=== PATIENT | female | born 1990 | race Caucasian/White ===

== ENCOUNTER → 2017-10-26 01:21 | Emergency (ER) | payer OTHER ==
[~2017-10-26 01:21] MED LIST: Ondansetron ODT TAB* 4 MG SL ONE
--- NOTE | 2017-10-26 02:17 | ED ---
Substance Abuse/Use - HPI Summary HPI Summary: Patient is a 27-year-old female with a history of Sreekanth-Danlos and Mckeon syndrome presenting to the ED with friend. Friend states she has had 2 very large alcoholic mixed drinks this evening with THC oil as well. She is endorsing some nausea on arrival. Denies any other drug use. Denies any falls , hitting her head or LOC. She denies any chest pain or shortness of breath. - History Of Current Complaint Chief Complaint: EDSubstanceAbuse Stated Complaint: POSSIBLE OVERDOSE Time Seen by Provider: 10/26/17 01:47 Hx Obtained From: Patient ?: No Ingestion History: Type/Name Of Drug - etoh and cbd oil Overdose Characteristics: Oral Severity Initially: Mild Severity Currently: Mild Aggravating Factor(s): Nothing Alleviating Factor(s): Nothing Associated Signs And Symptoms: Negative - Allergies/Home Medications Allergies/Adverse Reactions: Allergies Allergy/AdvReac Type Severity Reaction Status Date / Time codeine Allergy Itching Verified 10/26/17 01:24 MS Penicillins [Penicillins] Allergy YARED Verified 10/31/16 13:51 PADMINI SYNDROME Home Medications: Home Medications NK [No Home Medications Reported] 10/26/17 [History Confirmed 10/26/17] PMH/Surg Hx/FS Hx/Imm Hx Previously Healthy: Yes Endocrine/Hematology History: Denies: Hx Diabetes Cardiovascular History: Denies: Hx Hypertension, Hx Pacemaker/ICD History: Denies: Hx Renal Disease Sensory History: Denies: Hx Hearing Aid Psychiatric History: Denies: Hx Panic Disorder - Surgical History Surgery Procedure, Year, and Place: CHEVRON OSTEOTOMY 05/2016 RIGHT FOOT. LEFT SHOULDER REPAIR 2008. MAXILLA REPAIR FOR FRACTURE 2008. WISDOM TEETH. TONSILS /ADENOIDS 1999. LEFT BREAST BIOPSY 2006 Infectious Disease History: No Infectious Disease History: Denies: Traveled Outside the US in Last 30 Days - Social History Occupation: Employed Full-time Lives: With Family Alcohol Use: Occasionally Hx Substance Use: No Substance Use Type: Reports: None Hx Tobacco Use: No Smoking Status (MU): Never Smoked Tobacco Review of Systems Constitutional: Negative Negative: Fever, Chills, Fatigue, Skin Diaphoresis Negative: Palpitations, Chest Pain Negative: Shortness Of Breath, Cough Positive: Vomiting, Nausea. Negative: Abdominal Pain, Diarrhea Neurological: Negative Psychological: Normal All Other Systems Reviewed And Are Negative: Yes Physical Exam Triage Information Reviewed: Yes Vital Signs On Initial Exam: Initial Vitals Temp Pulse Resp BP Pulse Ox 98.1 F 85 15 111/75 99 10/26/17 01:22 10/26/17 01:22 10/26/17 01:22 10/26/17 01:22 10/26/17 01:22 Vital Signs Reviewed: Yes Appearance: Positive: Well-Appearing, Well-Nourished Skin: Positive: Warm, Skin Color Reflects Adequate Perfusion Head/Face: Positive: Normal Head/Face Inspection Eyes: Positive: EOMI, SUNNY, Conjunctiva Clear Neck: Positive: Supple, No Lymphadenopathy Respiratory/Lung Sounds: Positive: Clear to Auscultation, Breath Sounds Present Cardiovascular: Positive: RRR, Pulses are Symmetrical in both Upper and Lower Extremities Abdomen Description: Positive: Nontender, Soft Musculoskeletal: Positive: Normal, Strength/ROM Intact Neurological: Positive: Slurred Speech Psychiatric: Positive: Normal, Affect/Mood Appropriate AVPU Assessment: Alert Diagnostics - Vital Signs Vital Signs Temp Pulse Resp BP Pulse Ox 10/26/17 01:22 98.1 F 85 15 111/75 99 - Laboratory Lab Statement: Any lab studies that have been ordered have been reviewed, and results considered in the medical decision making process. Course/Dx - Course Course Of Treatment: Friend is at bedside. Patient is given Zofran 4 mg ODT. 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 Zofran with improvement. Asking for discharge. She is discharged home with alcohol intoxication to sober [facility] care. - Diagnoses Differential Diagnosis/HQI/PQRI: Positive: Alcohol Abuse Provider Diagnoses: Alcohol intoxication Discharge - Sign-Out/Discharge Documenting (check all that apply): Patient Departure - Discharge Plan Condition: Stable Disposition: HOME Patient Education Materials: Alcohol Intoxication (ED) Referrals: No Primary Care Phys,NOPCP [Primary Care Provider] - - Billing Disposition and Condition Condition: STABLE Disposition: Home
[2017-10-26 03:04] VITALS: BP 109/71
== END | disposition home or self-care (01) ==
LOC: ED 01:21
DX: F10.129 Alcohol abuse with intoxication, unspecified (principal); Q79.6 Ehlers-Danlos syndromes; I49.8 Other specified cardiac arrhythmias; Z88.5 Allergy status to narcotic agent; Z88.0 Allergy status to penicillin
CPT/HCPCS: 99282; A9270-GY

== ENCOUNTER 2018-02-07 20:36 | Inpatient (IN) | payer OTHER ==
[2018-02-07 21:56] LABS: ABS Basophils 0 10^3/ul (0-0.2); ABS Eosinophils 0.1 10^3/ul (0-0.6); ABS Lymphocytes 1.5 10^3/ul (1.0-4.8); ABS Monocytes 0.4 10^3/ul (0-0.8); ABS Neutrophils 6.7 10^3/ul (1.5-7.7); ABS Nucleated RBC 0 10^3/ul; Eosinophil % 0.6 %; Hematocrit 40 % (35-47); Hemoglobin 13.6 g/dl (12.0-16.0); Lymphocyte % 16.8 %; Mean Corpuscular HGB Conc 34 g/dl (31-36); Mean Corpuscular Hemoglobin 32 pg (27-31); Mean Corpuscular Volume 93 fL (80-97); Mean Platelet Volume 8.3 fL (7.4-10.4); Nucleated Red Blood Cells % 0; Platelet Count 233 10^3/ul (150-450); Red Blood Count 4.29 10^6/ul (4.00-5.40); Red Cell Distribution Width 13 % (10.5-15); White Blood Count 8.7 10^3/ul (3.5-10.8)
[2018-02-07 22:12] LABS: EGFR Non-African American 74.2 (>60)
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
[2018-02-07 23:45] LABS: Urine Appearance Clear; Urine Blood Negative (Negative); Urine Color Yellow; Urine Ketones Negative (Negative); Urine Protein Negative (Negative); Urine Specific Gravity 1.009 (1.010-1.030); Urine Urobilinogen Negative (Negative)
[2018-02-08] MEDS ORDERED: Acetaminophen TAB* 325 MG PO PRN (04:08)
[2018-02-08] MEDS ORDERED: Al Hydrox/Mg Hydrox/Simet LIQ* 30 ML UDC PO PRN (04:08)
[2018-02-08] MEDS: Vitamin THERAPEUTIC TAB PO SCH (10:08)
[2018-02-08] MEDS: Ibuprofen TAB* 600 MG PO PRN (10:08)
[2018-02-08] MEDS: Lisdexamfetamine(NF) 10 MG CAP PO SCH (10:08)
[2018-02-08] MEDS: Cetirizine* 10 MG TAB PO SCH (18:17)
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
[2018-02-09] MEDS: Vitamin THERAPEUTIC TAB PO SCH (09:26)
[2018-02-09] MEDS: Lisdexamfetamine(NF) 10 MG CAP PO SCH (09:26)
[2018-02-09] MEDS: Ibuprofen TAB* 600 MG PO PRN (09:27)
--- NOTE | 2018-02-09 11:48 | PN ---
[facility]: Group Therapy Note - Service Type Service Type: 13901 Group Psychotherapy - Cognitive Behavioral Group Therapy ( CBT):Patient was attentive and participatory in CBT programming this morning, and remained in good behavioral control. Patient expressed positive insights regarding relevant treatment interventions and goals.
[2018-02-09] MEDS ORDERED: hydrOXYzine HCL TAB* 50 MG PO PRN (13:29)
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
[2018-02-09] MEDS: Venlafaxine EXT RELEASE CAP* 75 MG PO SCH (14:48)
[2018-02-09] MEDS: Cetirizine* 10 MG TAB PO SCH (21:50)
[2018-02-10] MEDS: Vitamin THERAPEUTIC TAB PO SCH (09:07)
[2018-02-10] MEDS: Venlafaxine EXT RELEASE CAP* 75 MG PO SCH (09:07)
[2018-02-10] MEDS: Ibuprofen TAB* 600 MG PO PRN (09:08)
[2018-02-10] MEDS ORDERED: Ondansetron TAB* 4 MG PO PRN (12:10)
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
[2018-02-10] MEDS: Cetirizine* 10 MG TAB PO SCH (17:46)
[2018-02-11] MEDS: Venlafaxine EXT RELEASE CAP* 75 MG PO SCH (09:53)
[2018-02-11] MEDS: Vitamin THERAPEUTIC TAB PO SCH (09:53)
--- NOTE | 2018-02-11 11:36 | PN ---
MHU: Group Therapy Note - Service Type Service Type: [id number] Group Psychotherapy - Cognitive Behavioral Group Therapy ( CBT):Patient was attentive and participatory in CBT programming this morning, and remained in good behavioral control. Patient expressed positive insights regarding relevant treatment interventions and goals.
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
[2018-02-11] MEDS: Cetirizine* 10 MG TAB PO SCH (17:38)
[2018-02-12] MEDS: Venlafaxine EXT RELEASE CAP* 75 MG PO SCH (09:00)
[2018-02-12] MEDS: Vitamin THERAPEUTIC TAB PO SCH (09:00)
[2018-02-12] MEDS ORDERED: LISDEXAMFETAMINE 20 MG PO SCH (12:00)
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
[2018-02-12] MEDS: Cetirizine* 10 MG TAB PO SCH (23:17)
[2018-02-13] MEDS: Vitamin THERAPEUTIC TAB PO SCH (08:37)
[2018-02-13] MEDS: Venlafaxine EXT RELEASE CAP* 75 MG PO SCH (08:37)
[2018-02-13] MEDS ORDERED: Lisdexamfetamine(NF) 10 MG CAP PO SCH (09:00)
[2018-02-13 09:06] VITALS: BP 121/76
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
== END 2018-02-13 14:45 | disposition home or self-care (01) | DRG 885 ==
LOC: ED 20:36 → BSU 02-08 02:31
PROVIDERS: ADMIT Psychiatry & Neurology Psychiatry; ATTEND Psychiatry & Neurology Psychiatry
DX: F33.1 Major depressive disorder, recurrent, moderate (principal); R45.851 Suicidal ideations; Q79.6 Ehlers-Danlos syndromes; F41.1 Generalized anxiety disorder; F90.0 Attention-deficit hyperactivity disorder, predominantly inattentive type; F60.3 Borderline personality disorder; K21.9 Gastro-esophageal reflux disease without esophagitis; T40.4X2A Poisoning by other synthetic narcotics, intentional self-harm, initial encounter; T42.4X2A Poisoning by benzodiazepines, intentional self-harm, initial encounter; T43.212A Poisoning by selective serotonin and norepinephrine reuptake inhibitors, intentional self-harm, initial encounter; Y92.039 Unspecified place in apartment as the place of occurrence of the external cause; Z79.899 Other long term (current) drug therapy; Z88.5 Allergy status to narcotic agent; Z88.0 Allergy status to penicillin
CPT/HCPCS: 36415; 80053; 80307; 80320; 80329; 81003; 84443; 84702; 85025; 90853; 99222; 99231; 99232; 99238; 99285; A9270-GY; G0480

== ENCOUNTER 2018-06-03 16:18 | Emergency (ER) | payer OTHER ==
[2018-06-03] MEDS ORDERED: NS 0.9% 1000 ML** 1,000 ML IV ONE (17:09)
[2018-06-03] MEDS ORDERED: Ondansetron INJ* 2 MG/ML VIAL IV ONE (17:09)
[2018-06-03] MEDS ORDERED: Pantoprazole IV* 40 MG IV ONE (17:09)
--- NOTE | 2018-06-03 17:14 | ED ---
GI/ HPI - HPI Summary HPI Summary: Pt is a 27 y/o F presenting to the ED with a chief complaint of GI issues. She has hx of GERD that she takes omeprazole for. She woke up this morning at 0400 and vomited gastric juices, around 0900 she had coffee ground emesis, and at 1100/1200, she saw maroon streaks in her vomit. She reports nausea, vomiting, and hematemesis. She denies abd pain, fever, or black stools. - History of Current Complaint Chief Complaint: EDNauseaVomitDiarrh Time Seen by Provider: 06/03/18 17:01 Stated Complaint: BLOODY VOMIT PER PT Hx Obtained From: Patient Onset/Duration: Started Hours Ago, Still Present Timing: Constant Severity: Mild Current Severity: Mild Pain Intensity: 0 Location of Pain: Epigastric Pain Characteristics: Cramping - mild Associated Signs and Symptoms: Positive: Hematemesis, Nausea, Vomiting. Negative: Black Tarry Stool, Fever, Abdominal Pain Aggravating Factor(s): Nothing Alleviating Factor(s): Nothing - Additional Pertinent History Primary Care Physician: [id number] - Allergy/Home Medications Allergies/Adverse Reactions: Allergies Allergy/AdvReac Type Severity Reaction Status Date / Time codeine Allergy Itching Verified 10/26/17 01:24 Penicillins Allergy See Comment Verified 02/07/18 21:36 Home Medications: Home Medications Dextroamphetamine (NF) TAB [Dexedrine TAB*] 10 mg PO DAILY 06/03/18 [History Confirmed 06/03/18] Ethinyl Estradiol/Drospirenone [Hanh 28 Tablet (Nf)] 1 each PO DAILY 06/03/18 [ History Confirmed 06/03/18] rOPINIRole TAB* [Requip TAB*] 1 mg PO BEDTIME 06/03/18 [History Confirmed ] PMH/Surg Hx/FS Hx/Imm Hx Previously Healthy: Yes Endocrine/Hematology History: Denies: Hx Diabetes, Hx Thyroid Disease, Hx Anemia Cardiovascular History: Reports: Other Cardiovascular Problems/Disorders - POTS Denies: Hx Hypertension, Hx Pacemaker/ICD Respiratory History: Reports: Hx Seasonal Allergies GI History: Reports: Hx Gastroesophageal Reflux Disease History: Denies: Hx Benign Prostatic Hyperplasia, Hx Renal Disease Musculoskeletal History: Reports: Other Musculoskeletal History - Ehler's Danlo Denies: Hx Arthritis, Hx Back Problems, Hx Bursitis, Hx Congenital Bone Abnormalities, Hx Fibromyalgia, Hx Gout, Hx Orthopedic Injury, Hx Osteoporosis, Hx Scoliosis, Hx Tendonitis Sensory History: Reports: Hx Contacts or Glasses Denies: Hx Hearing Aid Opthamlomology History: Reports: Hx Contacts or Glasses Neurological History: Reports: Other Neuro Impairments/Disorders - Concussions ( 12 total) Psychiatric History: Reports: Hx Attention Deficit Hyperactivity Disorder, Hx Depression, Hx Post Traumatic Stress Disorder - Trauma related, Hx Inpatient Treatment - Hospital in [place], [place], Hx [facility], Hx Suicide Attempt - Overdose on medications Denies: Hx Anxiety, Hx Eating Disorder, Hx Panic Disorder, Hx Schizophrenia, Hx of Violent Episodes Against Others, Hx Substance Abuse - Surgical History Surgery Procedure, Year, and Place: [place] OSTEOTOMY 05/2016 RIGHT FOOT(BUNION REPAIR). LEFT SHOULDER TENDON REPAIR 2008. MAXILLA REPAIR FOR FRACTURE 2008. WISDOM TEETH. TONSILS/ADENOIDS 1999. LEFT BREAST BIOPSY 2006 Hx Anesthesia Reactions: No Infectious Disease History: No Infectious Disease History: Denies: Traveled Outside the in Last 30 Days - Family History Known Family History: Positive: Other - GERD, father - Social History Alcohol Use: Rare Alcohol Amount: 4 cups of vodka or wine Hx Substance Use: No Substance Use Type: Reports: None Hx Tobacco Use: No Smoking Status (MU): Never Smoked Tobacco Review of Systems Negative: Fever Gastrointestinal: Negative - black stools Positive: Vomiting, Nausea, Other - hematemesis. Negative: Abdominal Pain All Other Systems Reviewed And Are Negative: Yes Physical Exam - Summary Physical Exam Summary: VITAL SIGNS: Reviewed. GENERAL: Patient is a well-developed and nourished female who is lying comfortable in the stretcher. Patient is not in any acute respiratory distress. HEAD AND FACE: No signs of trauma. No ecchymosis, hematomas or skull depressions. No sinus tenderness. EYES: PERRLA, EOMI x 2, No injected conjunctiva, no nystagmus. EARS: Hearing grossly intact. Ear canals and tympanic membranes are within normal limits. MOUTH: Oropharynx within normal limits. NECK: Supple, trachea is midline, no adenopathy, no JVD, no carotid bruit, no c- spine tenderness, neck with full ROM. CHEST: Symmetric, no tenderness at palpation LUNGS: Clear to auscultation bilaterally. No wheezing or crackles. CVS: Regular rate and rhythm, S1 and S2 present, no murmurs or gallops appreciated. ABDOMEN: Mild epigastric tenderness. No signs of distention. No rebound no guarding, and no masses palpated. Bowel sounds are normal. EXTREMITIES: FROM in all major joints, no edema, no cyanosis or clubbing. NEURO: Alert and oriented x 3. No acute neurological deficits. Speech is normal and follows commands. SKIN: Dry and warm Triage Information Reviewed: Yes Vital Signs On Initial Exam: Initial Vitals Temp Pulse Resp BP Pulse Ox 98.7 F 74 16 146/89 97 06/03/18 16:20 06/03/18 16:20 06/03/18 16:20 06/03/18 16:20 06/03/18 16:20 Vital Signs Reviewed: Yes Diagnostics - Vital Signs Vital Signs Temp Pulse Resp BP Pulse Ox 06/03/18 17:01 70 98 06/03/18 16:20 98.7 F 74 16 146/89 97 - Laboratory Result Diagrams: 06/03/18 17:47 06/03/18 17:47 Lab Statement: Any lab studies that have been ordered have been reviewed, and results considered in the medical decision making process. GIGU Course/Dx - Course Assessment/Plan: Patient is a 27-year-old female who presents to the emergency room with a one episode of vomiting blood. Patient reports that she has severe GERD and in the last couple days the patient is be having worsening symptoms. Test results without any significant abnormality, hemoglobin and hematocrit is normal, potassium is 3.4. Which the patient was given potassium chloride. Urinalysis is negative for UTI. Chest x-ray impression no acute pathology. In the ED course the patient was given IV fluids for rehydration, Zofran for nausea and vomiting and Protonix for the GERD. After these medications were given the patients symptoms have significantly improved. The patient will be discharged home with follow-up with PCP. Patient is hemodynamically stable alert oriented 3. Patient will be discharged home with a prescription for Zofran and Protonix. - Diagnoses Provider Diagnoses: Nausea & vomiting, GERD (gastroesophageal reflux disease) Discharge - Sign-Out/Discharge Documenting (check all that apply): Patient Departure Patient Received Moderate/Deep Sedation with Procedure: No - Discharge Plan Condition: Stable Disposition: HOME Prescriptions: Ondansetron ODT TAB* [Zofran 4 MG Odt TAB*] 4 mg PO Q6H PRN #10 tab.odt PRN Reason: Nausea Pantoprazole TAB * [Protonix TAB*] 40 mg PO DAILY #14 tab Referrals: Bri Manjarrez NP [Primary Care Provider] - Terrell Gore MD [Medical Doctor] - Additional Instructions: Please follow up with gastroenterology within the next 3 days. Return to the ED with any new or worsening symptoms. - Billing Disposition and Condition Condition: STABLE Disposition: Home - Attestation Statements Document Initiated by Fernandoibbaldo: Yes Documenting Scribe: Emily Pham Provider For Whom Jamel is Documenting (Include Credential): Arron Adan MD. Scribe Attestation: Emily Rosas scribed for Arron Adan MD. on 06/04/18 at 1817. Scribe Documentation Reviewed: Yes Provider Attestation: The documentation as recorded by the [email or web address] accurately reflects the service I personally performed and the decisions made by Arron mahan MD. Status of Scribe Document: Viewed
[2018-06-03 18:01] LABS: ABS Basophils 0 10^3/ul (0-0.2); ABS Eosinophils 0.1 10^3/ul (0-0.6); ABS Lymphocytes 2.3 10^3/ul (1.0-4.8); ABS Monocytes 0.5 10^3/ul (0-0.8); ABS Neutrophils 4.8 10^3/ul (1.5-7.7); ABS Nucleated RBC 0 10^3/ul; Eosinophil % 0.8 %; Hematocrit 35 % (33-41); Hemoglobin 12.1 g/dL (12.0-16.0); Lymphocyte % 29.5 %; Mean Corpuscular HGB Conc 35 g/dL (31-36); Mean Corpuscular Hemoglobin 32 pg (27-31); Mean Corpuscular Volume 93 fL (80-97); Mean Platelet Volume 9.1 fL (7.4-10.4); Nucleated Red Blood Cells % 0; Platelet Count 213 10^3/uL (150-450); Red Blood Count 3.77 10^6 /uL (3.70-4.87); Red Cell Distribution Width 12 % (10.5-15); White Blood Count 7.7 10^3/uL (3.5-10.8)
[2018-06-03 18:14] LABS: ALT 11 U/L (7-52); AST 15 U/L (13-39); Albumin 3.9 g/dL (3.2-5.2); Albumin/Globulin Ratio 1.8 (1-3); Alkaline Phosphatase 35 U/L (34-104); Anion Gap 8 mmol/L (2-11); BUN/Creatinine Ratio 12.6 (8-20); Blood Urea Nitrogen 11 mg/dL (6-24); C Reactive Protein < 1.00 mg/L (<8.01); CO2 Carbon Dioxide 24 mmol/L (22-32); Calcium 8.8 mg/dL (8.6-10.3); Chloride 107 mmol/L (101-111); EGFR African American 94.5 (>60); EGFR Non-African American 78.1 (>60); Globulin 2.2 g/dL (2-4); Glucose 98 mg/dL (70-100); Potassium 3.4 mmol/L (3.5-5.0); Sodium 139 mmol/L (135-145); Total Protein 6.1 g/dL (6.4-8.9)
[2018-06-03] MEDS ORDERED: Potassium Chlor TAB* 20 MEQ TAB.ER PO ONE (18:16)
[2018-06-03 18:21] LABS: Urine Appearance Clear; Urine Bilirubin Negative (Negative); Urine Blood Negative (Negative); Urine Color Yellow; Urine Glucose Negative (Negative); Urine Ketones 2+ (Negative); Urine Nitrite Negative (Negative); Urine Protein Negative (Negative); Urine Specific Gravity 1.026 (1.010-1.030); Urine Urobilinogen Negative (Negative)
[2018-06-03] MEDS ORDERED: PROCHLORPERAZINE INJ 5 MG/ML 2 ML VIAL IV PRN (18:56)
[2018-06-03 19:08] VITALS: BP 111/79
== END 2018-06-03 19:08 | disposition home or self-care (01) ==
LOC: ED 16:18
DX: K21.9 Gastro-esophageal reflux disease without esophagitis (principal); R11.2 Nausea with vomiting, unspecified; F90.9 Attention-deficit hyperactivity disorder, unspecified type; F32.9 Major depressive disorder, single episode, unspecified; Z91.5 Personal history of self-harm
CPT/HCPCS: 36415; 71046; 80053; 81003; 83605; 83690; 85025; 86140; 96361; 96374; 96375; 99283; A9270-GY; J0780; J2405

== ENCOUNTER 2019-01-02 14:05 | Emergency (ER) | payer OTHER ==
--- OUTSIDE RECORDS SUMMARY | 2019-01-02 14:09 | XMS REPORT | Continuity of Care Document ---
:1990 External Reference #:[id number] Author Name Marcial Terry MD (transmitted by agent of provider Brian Jhons) Address [address] [place] [address] Care Team Providers Name Role Phone [facility] Care Team Information Finance Attorney [phone] Problems Active Problems Provider Date Sprain, tarsometatarsal joint Jorge Alberto Hairston MD Onset: 12/09/2017 Finger joint unstable Alejandro Kaplan MD Onset: 10/25/2016 Shoulder joint unstable Alejandro Kaplan MD Onset: 10/25/2016 Social History Type Date Description Comments Sex Unknown ETOH Use Denies alcohol use Tobacco Use Start: Unknown Patient has never smoked Smoking Status Reviewed: 11/19/18 Patient has never smoked Exercise Type/Frequency Exercises sporadically Allergies, Adverse Reactions, Alerts Active Allergies Reaction Severity Comments Date Penicillin 10/25/2016 Medications Active Medications SIG Qnty Indications Ordering Date Provider Metoclopramide HCL bid 30tabs Alejandro Kaplan, 10/25/2016 50mg MD Tablets Dispers Adderall XR 1 by mouth every Unknown 30mg Caps ER day 24HR Topiramate 0.5 tab by mouth Unknown 50mg Tablets twice a day for 1 week, then 1 twice a day for 1 week, then 1.5 twice a day for 1 week, then 2 twice a day Ropinirole HCL 1-4 tabs by Unknown 0.75mg mouth every at Tablets at bedtime as directed Tramadol HCL 1-2 tablets Unknown 50mg Tablets every 6 hours as needed Soma 1 tab q8 hours Unknown 250mg Tablets by mouth as needed muscle spasms Clonazepam 1 by mouth as Unknown 0.5mg Tablets needed for sleep Zyrtec Allergy 1 by mouth every Unknown 10mg day Capsules Bepreve Unknown 1.5% Solution Ibuprofen Unknown Immunizations Description No Information Available Vital Signs Date Vital Result Comment 11/19/2018 11:11am Height 68 inches 5'8" Weight 145.00 lb stated Heart Rate 68 /min BP Systolic 106 mmHg BP Diastolic 62 mmHg Respiratory Rate 12 /min Pain Level 4 BMI (Body Mass Index) 22.0 kg/m2 12/16/2017 1:47pm Height 68 inches 5'8" Weight 159.00 lb Heart Rate 76 /min Respiratory Rate 15 /min Body Temperature 97.0 F Pain Level 4 BMI (Body Mass Index) 24.2 kg/m2 Results Description No Information Available Procedures Description No Information Available Medical Devices Description No Information Available Encounters Description No Information Available Assessments Date Code Description Provider 11/19/2018 M25.561 Pain in right knee Marcial Terry MD Plan of Treatment 11/19/2018 - Marcial Terry, MDM25.561 Pain in right kneeNew Therapy: Physical TherapyFollow up:Follow up: after MRI Functional Status Description No Information Available Mental Status Description No Information Available Referrals Description No Information Available
--- OUTSIDE RECORDS SUMMARY | 2019-01-02 14:09 | XMS REPORT | Continuity of Care Document ---
:1990 External Reference #:[id number] Author Name Jeannette Hurd PA-C Address [address] [place] [address] Care Team Providers Name Role Phone Bri Manjarrez NP Care Team Information Mortgage Loan Originator [phone] Problems Active Problems Provider Date Nausea and vomiting Jeannette Hurd PA-C Onset: 07/10/2018 Hematemesis Jeannette Hurd PA-C Onset: 06/12/2018 Gastroesophageal reflux disease Jeannette Hurd PA-C Onset: 06/12/2018 Social History Type Date Description Comments Sex Unknown Tobacco Use Start: Unknown Patient has never smoked Smoking Status Reviewed: 11/30/18 Patient has never smoked Allergies, Adverse Reactions, Alerts Active Allergies Reaction Severity Comments Date Penicillin 06/12/2018 Medications Active Medications SIG Qnty Indications Ordering Date Provider Prevacid Solutab 1 tab PO bid 100tabs K21.9 Jack Boone, DO 06/12/2018 30mg Tablets at least Dispers 30min prior to meals Dextroamphetamine Sulfate Unknown 10mg Tablets Hanh 1 by mouth Unknown 3-0.02mg Tablets every day Diazepam Unknown 5mg Tablets Dronabinol Unknown 5mg Capsules History Medications Metoclopramide HCL 1-2 tabs by mouth 30tabs Jack Boone, 07/11/2018 - 5mg every 6 hours as DO 11/30/2018 Tablets Dispers needed for nausea/vomiting Immunizations Description No Information Available Vital Signs Date Vital Result Comment 11/30/2018 10:52am Height 69 inches 5'9" Weight 163.00 lb BP Systolic 121 mmHg BP Diastolic 73 mmHg Heart Rate 79 /min BMI (Body Mass Index) 24.1 kg/m2 07/10/2018 11:12am Height 69 inches 5'9" BP Systolic 116 mmHg BP Diastolic 93 mmHg Heart Rate 93 /min Results Test Date Facility Test Result H/L Range Note [place] [facility] [place] SEE RESULT 1 finding 9 Interface BELOW Order Laboratory [place] [facility] [place]otest SEE RESULT 2 finding 9 BELOW CBC W/[facility] White Blood 6.6 3/UL 4.8-10.8 Differential(!) [address] [facility] [facility] [address] [address] [place] [place] [address] Auto CNT [phone] RBC Red Blood Count 4.27 X106/UL 4.20-6.20 Hemoglobin Blood 13.3 g/dL 12.0-18.0 Hematocrit 41.1 % 35-52 MCV (Corpuscular Volume) 96.3 FL 79-97 MCH (Corpuscular Hemoglobin) 31.2 pg High 27-31 MCHC (Corpuscular Hemog Conc) 32.5 g/dL 32.0-36.0 RDW 12.9 % 10.5-15.0 Platelet Count Blood Auto CNT 240 X103/UL 150-450 MPV 8.1 FL 7.4-10.4 Lymph% 37.2 % 20.0-45.0 [place]% 4.2 % 1.0-9.0 Neutrophil % 58.6 % 38.0-83.0 Absolute Lymphocytes 2.5 X103/UL 1.0-4.8 Absolute Monocytes 0.3 X103/UL 0.0-0.8 Absolute Neutrophils 3.9 X103/UL 1.5-7.7 1 SEE RESULT BELOW Name: MARTHA LION : [address]: Jack Boone DO Acct: [id number] Unit: [id number] AGE: 27 Location: ENDO Re06/18/18 SEX: F Status: DEP REF SPEC: [id number] SUZETTE: 06/18/18-[address] [facility] [address]: Jack Boone DO REQ: [id number] RECD: 06/18/18 STATUS: BRIDGET CARRILLO DR: Bri Manjarrez SENIOR QUALITATIVE RESEARCHER _ ORDERED: LEVEL 4/2 FINAL DIAGNOSIS 1. Duodenum, biopsy: -- Benign small intestinal mucosa with no significant pathologic abnormalities. -- No evidence of villous blunting or increased intraepithelial lymphocytes. 2. Esophagus, distal, biopsy: -- Benign squamous and columnar-type mucosa with chronic inflammation. -- Intestinal metaplasia is absent. -- Dysplasia is absent. CLINICAL HISTORY Gastroesophageal reflux disease; hemochezia POST-OPERATIVE DIAGNOSIS EGD: esophagus - mild reflux; no tear; gastric - mid antral gastritis biopsy ; 1 to 2 cm hiatal hernia; duodenum - normal, biopsy GROSS DESCRIPTION 1. The specimen is received in formalin labeled, Duodenal Biopsies, and consists of two anglin-pink irregular soft tissue fragments aggregating 0.4 x 0.3 by up to 0.2 cm which are submitted entirely in one cassette. 2. The specimen is received in formalin labeled, Distal Esophagus Biopsies , and consists of a 0.3 x 0.3 x 0.1 cm aggregate of white-pink irregular soft tissue fragments which is submitted entirely in one cassette. CONTINUED ON NEXT PAGE DEPARTMENT OF PATHOLOGY, [address] [place] [id number] Dawson Noriega M.D. Director JESICA # [id number] RUN DATE: 06/19/18 [facility] LAB LIVE PAGE 2 Patient: AYADMARTHA [id number] (Continued) GROSS DESCRIPTION (Continued) Signed by and Reported on: Makenna Tatum MD 06/19/18 1110 END OF REPORT DEPARTMENT OF PATHOLOGY, [address] [place] [address] Dawson Noriega M.D. Director JESICA # [id number] 2 SEE RESULT BELOW Name: MARTHA LION : [address]: Jack Boone DO Acct: [id number] Unit: [id number] AGE: 27 Location: ENDO Re06/18/18 SEX: F Status: REG REF SPEC: [id number] SUZETTE: 06/18/18-[address] [facility] [address]: Jack Boone DO REQ: [id number] RECD: 06/18/18 STATUS: JAEL CARRILLO DR: Bri Manjarrez SENIOR QUALITATIVE RESEARCHER _ SOURCE: GAS ANTRUM SPDESC: ORDERED: Clotest Procedure Result Reported Site Clotest Final 06/19/18- 42 ML Clotest Negative * ML - Main Lab . END OF REPORT DEPARTMENT OF PATHOLOGY, [address] [place] [address] Dawson Noriega M.D. Director [facility] # [id number] Procedures Date Code Description Status 06/18/2018 31571 Moderate Sedation Services; Same Phys Each Additional 15 Completed Mins 06/18/2018 38701 Moderate Sedation Services; Same Phys Intl 15 Mins; PT >= Completed 5 Years 06/18/2018 50381 EGD+Biopsy Single Or Multiple Completed Medical Devices Description No Information Available Encounters Type Date Location Provider Dx Diagnosis Office Visit 07/10/2018 Gastroenterology Jeannette Avelar K21.9 Gastro- esophageal 11:15a [facility] Vannessa PA-C reflux disease without esophagitis R11.2 Nausea with vomiting, unspecified Office 06/12/2018 Gastroenterology Jeannette Avelar K21.9 Gastro-esophageal Visit 11:00a [facility] Vannessa reflux disease PA-C without esophagitis K92.0 Hematemesis Assessments Date Code Description Provider 11/30/2018 K21.9 Gastro-esophageal reflux disease without Jeannette L. Jessicaanstrom, PA-C esophagitis 11/30/2018 R11.2 Nausea with vomiting, unspecified Jeannette Cobos. Hevertrom, PA- C 07/10/2018 K21.9 Gastro-esophageal reflux disease without Jeannette L. Swanstrom, PA-C esophagitis 07/10/2018 R11.2 Nausea with vomiting, unspecified Jeannette LSukhi Kathleentrom, PA- C 06/18/2018 K92.0 Hematemesis Jack Paolo, DO 06/18/2018 K21.9 Gastro-esophageal reflux disease without Jack Paolo, DO esophagitis 06/18/2018 K29.70 Gastritis, unspecified, without bleeding Jack Paolo, DO 06/18/2018 K44.9 Diaphragmatic hernia without obstruction Jack Paolo, DO or gangrene 06/12/2018 K21.9 Gastro-esophageal reflux disease without Jeannette Hurd PA-C esophagitis 06/12/2018 K92.0 Hematemesis Jeannette Hurd PA-C Plan of Treatment No Information Available Functional Status Description No Information Available Mental Status Description No Information Available Referrals Description No Information Available
[2019-01-02 14:34] VITALS: BP 112/78
--- NOTE | 2019-01-02 15:21 | UC ---
Shoulder Pain HPI - HPI Summary HPI Summary: The patient is a 28-year-old female with a history of Erlos Danlos syndrome. Due to laxity in her joints she has had multiple dislocations of her right shoulder. She has had a significant traumatic dislocation of her left shoulder which resulted in surgical repair of her torn labrum. This occurred about 10 years ago. Yesterday the cat jumped out of her arms and she went to reach for with her left arm. She states it felt like her left shoulder popped out of joint and then soon popped back in joint. She has a shoulder pain and she feels like her shoulder is unstable. She is right handed. - History of Current Complaint Chief Complaint: UCUpperExtremity Stated Complaint: SHOULDER INJURY Time Seen by Provider: 01/02/19 14:40 Hx Obtained From: Patient Hx Last Menstrual Period: 12/14/18 Onset/Duration: Sudden Onset, Lasting Hours Timing: Constant Severity Initially: Severe Severity Currently: Moderate Pain Intensity: 5 Pain Scale Used: 0-10 Numeric Character: Aching, Throbbing Aggravating Factor(s): Movement Alleviating Factor(s): Rest Associated Signs And Symptoms: Positive: Negative Related History: Similar Episode/Dx As - shoulder dislocation, Dominant Hand Right Torso: 1 - tender anteriorly, unable to abduct due to concerns of it dislocating - Allergies/Home Medications Allergies/Adverse Reactions: Allergies Allergy/AdvReac Type Severity Reaction Status Date / Time codeine Allergy Itching Verified 01/02/19 14:25 Penicillins Allergy See Comment Verified 01/02/19 14:25 Home Medications: Home Medications Diazepam TAB(*) [Valium TAB(*)] 10 mg PO Q8H PRN 01/02/19 [History Confirmed 04/21] Dronabinol CAP* [Marinol CAP*] 5 mg PO BID 01/02/19 [History Confirmed 01/02/19] Prazosin CAP* [Minipress CAP*] 1 mg PO DAILY 01/02/19 [History Confirmed ] PMH/Surg Hx/FS Hx/Imm Hx Previously Healthy: Yes - Surgical History Surgical History: Yes Surgery Procedure, Year, and Place: [place] OSTEOTOMY 05/2016 RIGHT FOOT(BUNION REPAIR). LEFT SHOULDER TENDON REPAIR 2008. MAXILLA REPAIR FOR FRACTURE 2008. WISDOM TEETH. TONSILS/ADENOIDS 1999. LEFT BREAST BIOPSY 2006 - Family History Known Family History: Positive: Other - GERD, father, Non-Contributory - Social History Alcohol Use: Occasionally Alcohol Amount: 4 cups of vodka or wine Substance Use Type: None Smoking Status (MU): Never Smoked Tobacco - Immunization History Most Recent Influenza Vaccination: December 2017 Most Recent Pneumonia Vaccination: unknown Review of Systems All Other Systems Reviewed And Are Negative: Yes Constitutional: Positive: Negative Skin: Positive: Negative Eyes: Positive: Negative ENT: Positive: Negative Respiratory: Positive: Negative Cardiovascular: Positive: Negative Gastrointestinal: Positive: Negative Genitourinary: Positive: Negative Motor: Positive: Negative Neurovascular: Positive: Negative Musculoskeletal: Positive: Arthralgia - left shoulder Neurological: Positive: Negative Psychological: Positive: Negative Physical Exam Triage Information Reviewed: Yes Appearance: Well-Appearing, No Pain Distress, Well-Nourished Vital Signs: Initial Vital Signs Temp 98.7 F 01/02/19 14:28 Pulse 75 01/02/19 14:28 Resp 18 01/02/19 14:28 BP 112/78 01/02/19 14:28 Pulse Ox 100 01/02/19 14:28 Vital Signs Reviewed: Yes Eyes: Positive: Conjunctiva Clear ENT: Positive: Hearing grossly normal, Uvula midline. Negative: Nasal congestion, Nasal drainage, Tonsillar swelling, Tonsillar exudate, Hoarse voice Dental Exam: Normal Neck: Positive: Supple Cardiovascular: Positive: RRR, No Murmur, Pulses Normal Musculoskeletal: Positive: ROM Limited @ - left shouldre Neurological: Positive: Alert Psychological Exam: Normal Skin Exam: Normal Diagnostics - Radiology No standard instances Radiology Interpretation Completed By: Radiologist Summary of Radiographic Findings: negative Shoulder Course/Dx - Differential Dx/Diagnosis Provider Diagnosis: Injury of left shoulder Discharge ED - Sign-Out/Discharge Documenting (check all that apply): Patient Departure All imaging exams completed and their final reports reviewed: Yes - Discharge Plan Condition: Stable Disposition: HOME Patient Education Materials: How to Use a Sling (ED), Shoulder Pain (ED) Forms: *School Release Referrals: [facility] [Outside] - As Soon As Possible Additional Instructions: ice twice daily sling for comfort I suspect your shoulder dislocated or subluxed then went back into joint tylenol or advil if needed for pain - Billing Disposition and Condition Condition: STABLE Disposition: Home
== END 2019-01-02 15:28 | disposition home or self-care (01) ==
LOC: UCEAST 14:05
DX: S49.92XA Unspecified injury of left shoulder and upper arm, initial encounter (principal); Z88.5 Allergy status to narcotic agent; Z88.0 Allergy status to penicillin; Z98.890 Other specified postprocedural states; Q79.60 Ehlers-Danlos syndrome, unspecified; X58.XXXA Exposure to other specified factors, initial encounter; Y92.9 Unspecified place or not applicable
CPT/HCPCS: 99212; G0463